=== PATIENT | female | born 1945 | race Caucasian/White ===

== ENCOUNTER 2018-05-28 09:57 | Outpatient (CLI) | payer BC | END 2018-05-28 09:58 | disposition home or self-care (01) | LOC: BICMAMMO 09:57 | PROVIDERS: ATTEND Internal Medicine | DX: Z12.31 Encounter for screening mammogram for malignant neoplasm of breast (principal) | CPT/HCPCS: 77063; 77067 ==

== ENCOUNTER 2020-03-23 07:06 | Outpatient (CLI) | payer BC ==
--- NOTE | 2020-03-23 07:55 | ULT ---
CLINICAL HISTORY: Chronic kidney disease. STUDY: Renal ultrasound and renal artery ultrasound COMPARISON: None. TECHNIQUE: Multiplanar grayscale and color Doppler images were obtained in a renal ultrasound. Spectr al analysis of the Doppler waveforms of the aorta and renal arteries were performed. FINDINGS: Right kidney: Echogenicity: Slightly echogenic with cortical thinning Masses/cysts: None. Hydronephrosis: None. Calcifications: None. Length: 8.2 cm Left kidney: Echogenicity: Normal. Masses/cysts: 1.8 cm anechoic cyst Hydronephrosis: None. Calcifications: None. Length: 9.4 cm The urinary bladder is empty. Peak systolic velocity in the aorta: 81 cm/s Peak systolic velocity in the right renal artery: 79 cm/s. Right renal artery to aortic ratio: 1.0 Peak systolic velocity in the left renal artery: 72 cm/s. Left renal artery to aortic ratio: 0.7 IMPRESSION: 1. Echogenic right kidney may be secondary to chronic disease involving the right kidney 2. No evidence of renal artery stenosis 3. Left renal cyst
== END 2020-03-23 07:07 | disposition home or self-care (01) ==
LOC: BICULT 07:06
PROVIDERS: ATTEND Family Medicine
DX: N18.2 Chronic kidney disease, stage 2 (mild) (principal); N28.1 Cyst of kidney, acquired
CPT/HCPCS: 76770; 93975

== ENCOUNTER 2021-09-02 13:37 | Outpatient (CLI) | payer BC | END 2021-09-02 13:38 | disposition home or self-care (01) | LOC: BICMAMMO 13:37 | PROVIDERS: ATTEND Family Medicine | DX: Z12.31 Encounter for screening mammogram for malignant neoplasm of breast (principal) | CPT/HCPCS: 77063; 77067 ==

== ENCOUNTER 2023-03-20 13:51 | Outpatient (CLI) | payer BC | END 2023-03-20 13:52 | disposition home or self-care (01) | LOC: BICMAMMO 13:51 | PROVIDERS: ATTEND Family Medicine | DX: Z12.31 Encounter for screening mammogram for malignant neoplasm of breast (principal) | CPT/HCPCS: 77063; 77067 ==

== ENCOUNTER 2023-06-13 14:02 | Outpatient (CLI) | payer BC | END 2023-06-13 14:03 | disposition home or self-care (01) | LOC: BICMAMMO 14:02 | PROVIDERS: ATTEND Family Medicine | DX: Z13.820 Encounter for screening for osteoporosis (principal); N95.9 Unspecified menopausal and perimenopausal disorder; M85.851 Other specified disorders of bone density and structure, right thigh; M85.852 Other specified disorders of bone density and structure, left thigh | CPT/HCPCS: 77080 ==